=== PATIENT | female | born 1990 | race Caucasian/White ===

== ENCOUNTER 2020-02-25 14:01 | Emergency (ER) | payer OTHER ==
[~2020-02-25] VITALS: Ht 162.6 cm; Wt 55.8 kg
--- NOTE | 2020-02-25 14:30 | NUR ---
CORINNEP PA AT BEDSIDE FOR EVAL.
--- NOTE | 2020-02-25 15:20 | NUR ---
BG 66. PT PROVIDED W/ JUICE.
--- NOTE | 2020-02-25 17:59 | NUR ---
BIB RA, PT WAS FOUND UNRESPONSIVE BY STAFF IN MOTEL ROOM, PT TO BED 12, -SOB, VSS, PENDING ER PROVIDER AGUSTINA
--- NOTE | 2020-02-25 18:11 | NUR ---
Patient discharged to home in stable condition. Written and verbal after care instructions given. Patient verbalizes understanding of instruction.
[2020-02-25 18:12] VITALS: BP 110/70
== END 2020-02-25 18:12 | disposition home or self-care (01) ==
LOC: ER 14:02
DX: F19.10 Other psychoactive substance abuse, uncomplicated (principal); F41.9 Anxiety disorder, unspecified; F90.9 Attention-deficit hyperactivity disorder, unspecified type; F42.9 Obsessive-compulsive disorder, unspecified
CPT/HCPCS: 82962-TC